=== PATIENT | female | born 2000 ===

== ENCOUNTER 2021-06-28 11:07 | Inpatient (IN) | payer BC ==
[~2021-06-28] VITALS: Ht 170.2 cm; Wt 78.2 kg
[2021-06-28] VITALS (9 sets, daily range): BP systolic 117–156; BP diastolic 64–103; PULSE 77–85; TEMP 98.2
[2021-06-28] MEDS ORDERED: TRANDATE 100MG100 MG PO (19:24)
[2021-06-28] MEDS ORDERED: PRENATAL TABLET PO (19:25)
[2021-06-28] MEDS ORDERED: ASPIRIN 81M81 MG/TA2 PO (19:25)
--- NOTE | 2021-06-28 20:00 | NUR ---
1920 G1 at 38.5 weeks gestation to LDR3 with and mother for cytotec induction. Patient changed into gown and wedged to left side in bed. EFMs explained and applied. FHR category 1. Patient reports good movement and irregular contractions, denies LOF or vaginal bleeding. Plan of care reviewed, assessment completed and consents signed. Initial BP at 1920 156/103, repeat at 1935 159/104. Patient high on left side, lights turned down. BP at 1952 138/88. Dr. Webster called and updated at 1955. IV started at 1949 with labs drawn from site. FHR decelerations noted from 1949 - 1999, with FHR down to 130-140 bpm with a spontaneous return to baseline of 145 bpm. IVF bolus started.
[2021-06-28 20:18] LABS: BASO % 0.3 % (0.0-2.0); EOS # 0.1 K/mm3 (0.0-0.7); EOS % 0.6 % (0.0-4.0); GRAN # 8.5 K/mm3 (1.4-6.5); GRAN % 69.4 % (42.2-75.2); HEMATOCRIT 39.2 % (35.0-45.0); HEMOGLOBIN 13.8 g/dl (12.0-15.0); LYMPH # 2.8 K/mm3 (1.2-3.4); LYMPH % 22.5 % (20.0-51.0); MEAN CELL VOLUME 88 fl (80.0-95.0); MEAN CORPUSCULAR HEMOGLOBIN 31 pg (26-32); MEAN CORPUSCULAR HGB CONC 35 g/dl (33.0-37.0); MEAN PLATELET VOLUME 11.7 fl (7.4-10.4); MONO # 0.8 K/mm3 (0.1-0.6); MONO % 6.3 % (1.7-9.3); PLATELET COUNT 221 K/mm3 (130-400); RED BLOOD COUNT 4.48 M/mm3 (4.10-5.30); REDCELL DISTRIBUTION WIDTH-CV 12.2 % (11.5-14.5)
--- NOTE | 2021-06-28 20:30 | NUR ---
2018 FHR deceleration down to 130 bpm over 50 seconds with a spontaneous return to baseline of 140 bpm.
--- NOTE | 2021-06-28 20:33 | NUR ---
2032 E with cytotec placement by VENICE Lincoln.
[2021-06-28 20:35] LABS: ALBUMIN 2.8 gm/dL (3.5-5.0); BILIRUBIN,TOTAL 0.3 mg/dL (0.2-1.2); CALCIUM 9.4 mg/dL (8.4-10.2); CREATININE, serum 0.66 mg/dL (0.57-1.11); POTASSIUM 3.8 mmol/L (3.5-4.5); TOTAL PROTEIN 6.9 gm/dL (6.2-8.1)
--- NOTE | 2021-06-28 22:00 | NUR ---
2148- PT UP TO BR 215- PT AMBULATES BACK TO BED 2154- RT SIDE AND TOCO ADJUSTED
--- NOTE | 2021-06-28 22:30 | NUR ---
2216- DECELERATION NOTED AT THIS TIME BUT NOT ASSOCIATED WITH A CTX AT THIS TIME. FUNDUS PALPATED AND TOCO ADJUSTED
[2021-06-29] VITALS (31 sets, daily range): BP systolic 113–162; BP diastolic 55–104; PULSE 68–113; TEMP 97.2–98.7
--- NOTE | 2021-06-29 | NUR ---
2340- PT MOVED TO RT SIDE, TOCO ADJUSTED
--- NOTE | 2021-06-29 01:00 | NUR ---
POC D/W PT AFTER SPEAKING WITH PROVIDER. PT IN AGREEMENT WITH POC AND VERBALIZES UNDERSTANDING. WHILE PT UP TO THE BR, BLOODY SHOW NOTED. LET THE PT KNOW THAT WAS A NORMAL FINDING AND TO NOT BE ALARMED. UP TO BR AND AFTER VOIDING PT UP TO SIDE OF BED STANDING AND SWAYING HIPS. PT BREATHING THROUGH CTX, COPING AND MORE COMFORTABLE STANDING UP. SPOUSE REMAINS AT BS AND ACTIVE IN PT'S CARE.
--- NOTE | 2021-06-29 02:00 | NUR ---
0155- PT VOMITING AND EXPERIENCING HORMONE SHAKES.
--- NOTE | 2021-06-29 02:30 | NUR ---
PT SITTING UP ON THE SIDE OF BED AND BREATHING THROUGH CTXS. PT REQUESTING SOMETHING FOR THE PAIN. D/W PT AND SPOUSE PAIN MANAGEMENT OPTIONS IV MEDICATION VS. EPIDURAL. EDUCATION PROVIDED AND ALL QUESTIONS ANSWERED. PT WOULD LIKE TO TRY IV PAIN MEDICATION.
--- NOTE | 2021-06-29 02:35 | NUR ---
STADOL 1 MG IV GIVEN FOR PAIN. PT LAYING ON LEFT SIDE. SO AT BS. CALL LIGHT WITHIN REACH.
--- NOTE | 2021-06-29 03:30 | NUR ---
PT RESTING IN BED AND REPORTS PAIN MEDICINE EFFECTIVE. STATES THAT SHE CAN STILL FEEL CTX BUT NOT STRONG. PT DENIES ANY ADDITIONAL NEEDS AT THIS TIME.
--- NOTE | 2021-06-29 05:00 | NUR ---
PT REPORTS SHE IS STARTING TO FEEL CTX MORE INTENSLY AGAIN.
--- NOTE | 2021-06-29 05:30 | NUR ---
PT BECOMING INCREASINGLY MORE UNCOMFORTABLE AND STANDING UP AT SIDE OF BED.
--- NOTE | 2021-06-29 06:00 | NUR ---
0553- IV BOLUS GOING FOR EPIDURAL PLACEMENT. PT STANDING UP ON SIDE OF BED SWAYING AND MOANINNG. FAMILY AT BS AND SUPPORTIVE IN PT'S CARE.
--- NOTE | 2021-06-29 06:22 | NUR ---
Sits up for epidural. 0626 Local given by anesthesia Malcolm. 0627 Space obtained and straight shot given by Malcolm moran. Lies down after.
--- NOTE | 2021-06-29 06:30 | NUR ---
Repositioned because of decel down in the nintys for seventy seconds.
--- NOTE | 2021-06-29 07:00 | NUR ---
Having variables down in the nintys for 50 seconds, repositioned to left side.
--- NOTE | 2021-06-29 07:15 | NUR ---
heart tones down to the 95 for 110 seconds. Placed knee chest position 0723 Dr. Villaseñor here, arom done, moderate amount of clear fluid.
--- NOTE | 2021-06-29 07:45 | NUR ---
heart tones down in the 100s for three minutes, repositioned from left-right. Dr. Villaseñor at bedside.
--- NOTE | 2021-06-29 08:43 | NUR ---
Patient complete, prepped for delivery. 0845 Pushes with contractions. 0853 Vacuum on, pushes with contractions. [address] Villaseñor. 0902 Spontaneous delivery of placenta by Dr. Villaseñor. Pitocin infusing at 333ccs an hour as ordered and per policy.
--- NOTE | 2021-06-29 09:15 | NUR ---
Rests in bed, alert. Holds baby lovingly. Denies any needs at this time.
--- NOTE | 2021-06-29 09:45 | NUR ---
Rests in bed, alert. Apple juice given, denies any other need at this time.
--- NOTE | 2021-06-29 11:00 | NUR ---
Rests in bed, alert. baby. Denies any discomfort or needs at this time.
--- NOTE | 2021-06-29 13:20 | NUR ---
Ambulates to the bathroom, tolerates well. States unable to pee at this time. Mónica-care shown and done by patient. Encouraged to drink more, and that we would try in an hour. 1330 To room 216 via wheel chair. Oriented to room, family at bedside.
--- NOTE | 2021-06-29 16:15 | NUR ---
Ambulates to the bathroom, voids moderate amount of urine. Tylenol 1000 mg given as ordered.
[2021-06-29] MEDS ORDERED: MOTRIN 800800 MG/TAB PO (20:47)
[2021-06-30 04:10] VITALS: BP 124/77; PULSE 78; TEMP 97.9
[2021-06-30 08:15] VITALS: BP 128/75; PULSE 83; TEMP 97.6
--- NOTE | 2021-06-30 09:21 | NUR ---
Initial visit attempt; Nurse with family, [facility] Work[facility] left card of congratulations for the of their son and God's blessings along with information regarding the availability of spiritual care at [facility].
[2021-06-30 14:30] VITALS: BP 137/79; PULSE 94
--- NOTE | 2021-06-30 15:04 | NUR ---
DISCHARGE TEACHING COMPLETED. PATIENT EDUCATED ON FOLLOW UP APPOITNMENT AND PRESCRIPTIONS. QUESTIONS INVITED AND ANSWERED.
== END 2021-06-30 15:25 | disposition home or self-care (01) | DRG 807 ==
LOC: LDR 11:07 → OB 19:01
PROVIDERS: ADMIT Obstetrics & Gynecology
PROC: 3E0P7VZ Introduction of Hormone into Female Reproductive, Via Natural or Artificial Opening (ICD-10-PCS; 2021-06-28)
PROC: 10D07Z6 Extraction of Products of Conception, Vacuum, Via Natural or Artificial Opening (ICD-10-PCS; principal; 2021-06-29)
PROC: 0HQ9XZZ Repair Perineum Skin, External Approach (ICD-10-PCS; 2021-06-29)
PROC: 10907ZC Drainage of Amniotic Fluid, Therapeutic from Products of Conception, Via Natural or Artificial Opening (ICD-10-PCS; 2021-06-29)
DX: O13.4 Gestational [pregnancy-induced] hypertension without significant proteinuria, complicating childbirth (principal); Z37.0 Single live birth; O76 Abnormality in fetal heart rate and rhythm complicating labor and delivery; O70.0 First degree perineal laceration during delivery; O69.81X0 Labor and delivery complicated by cord around neck, without compression, not applicable or unspecified; O99.344 Other mental disorders complicating childbirth; F41.9 Anxiety disorder, unspecified; Z3A.38 38 weeks gestation of pregnancy; Z86.16 Personal history of COVID-19
CPT/HCPCS: J0595; J2590; J2795; J7120

== ENCOUNTER 2021-07-05 18:28 | Emergency (ER) | payer BC ==
[~2021-07-05] VITALS: Ht 170.2 cm; Wt 69.1 kg
[~2021-07-05 18:28] MED LIST: ASPIRIN 81M81 MG/TA2 PO; MOTRIN 800800 MG/TAB PO; PRENATAL TABLET PO; TRANDATE 100MG100 MG PO
[2021-07-05 18:55] LABS: BASO # 0.1 K/mm3 (0.0-0.2); BASO % 0.7 % (0.0-2.0); EOS # 0.3 K/mm3 (0.0-0.7); EOS % 2.5 % (0.0-4.0); GRAN # 8.6 K/mm3 (1.4-6.5); GRAN % 62.8 % (42.2-75.2); HEMATOCRIT 40.8 % (35.0-45.0); HEMOGLOBIN 13.9 g/dl (12.0-15.0); LYMPH # 3.9 K/mm3 (1.2-3.4); LYMPH % 28.6 % (20.0-51.0); MEAN CELL VOLUME 90 fl (80.0-95.0); MEAN CORPUSCULAR HEMOGLOBIN 31 pg (26-32); MEAN CORPUSCULAR HGB CONC 34 g/dl (33.0-37.0); MEAN PLATELET VOLUME 10.5 fl (7.4-10.4); MONO # 0.7 K/mm3 (0.1-0.6); MONO % 4.7 % (1.7-9.3); PLATELET COUNT 372 K/mm3 (130-400); RED BLOOD COUNT 4.55 M/mm3 (4.10-5.30); REDCELL DISTRIBUTION WIDTH-CV 11.9 % (11.5-14.5)
[2021-07-05 19:04] LABS: COLLECTION METHOD CLEAN CATCH
[2021-07-05 19:09] LABS: ALBUMIN 3.3 gm/dL (3.5-5.0); BILIRUBIN,TOTAL 0.2 mg/dL (0.2-1.2); CREATININE, serum 0.76 mg/dL (0.57-1.11); POTASSIUM 3.8 mmol/L (3.5-4.5); TOTAL PROTEIN 7.6 gm/dL (6.2-8.1)
[2021-07-05 19:16] LABS: PH 6 (5-8); SQUAMOUS EPITHELIAL 0-2 /hpf (0-10); URINE APPEARANCE Hazy (CLEAR/HAZY); URINE BACTERIA None Seen /hpf (NONE SEEN); URINE BILIRUBIN Negative (NEGATIVE); URINE BLOOD 3+ (NEGATIVE); URINE COLOR Yellow (YELLOW); URINE GLUCOSE Negative (NEGATIVE); URINE KETONE Negative (NEGATIVE); URINE LEUKOCYTE ESTERASE 3+ (NEGATIVE); URINE NITRATE Negative (NEGATIVE); URINE PROTEIN(semi-quant) Negative (NEGATIVE); URINE UROBILINOGEN Negative (NEGATIVE)
[2021-07-05 20:12] VITALS: BP 136/97; PULSE 82; TEMP 97.9
== END 2021-07-05 20:12 | disposition home or self-care (01) ==
LOC: COL.ER 18:28
PROVIDERS: Nurse Practitioner Primary Care
DX: O16.5 Unspecified maternal hypertension, complicating the puerperium (principal)

== ENCOUNTER → 2021-07-29 | Outpatient (CLI) | payer BC, MEDICAID ==
--- NOTE | 2021-07-29 15:37 | NUR ---
Pt, Carmen Colindres, presents for outpatient consult with 1 month old baby boy, Gurpreet Colindres. Gurpreet is 3 days S/P oral tether release at the lip and tongue. Gurpreet was born on [birth year] by and weighed 7# 13oz (3543 oz). Pt contacted this LC by telephone on 07/22/21 with concerns about suck blisters the full length of Gurpreet's upper lip and sore nipples. After discussion it was suggested by this LC to have him evaluated for lip and tongue tie. Gurpreet has release of upper lip and tongue tethers on 07/26/21. Pt states the nursing seems more comfortable and the lip blisters are subsiding, but she desired a consultation to evaluate latch. Today Gurpreet weighs 10# 8.3oz (4772 gms). He nurses ~8 feedings daily, qs voids and stools. Pt has perfect latch and technique. After nursing nipple is appropriatly shaped. Gurpreet has a weight gain of 4.1oz (114 gms). General questions answered, pt reassured about success. POC: Continue to breastfeed ad keenan. F/U: as scheduled for next appt with [facility].
== END ==
LOC: LAC 14:49
DX: Z39.1 Encounter for care and examination of lactating mother (principal)

== ENCOUNTER 2021-10-13 09:20 | Day surgery (SDC) | payer BC, MEDICAID ==
[~2021-10-13] VITALS: Ht 170.2 cm; Wt 61.2 kg
[2021-10-13] MEDS ORDERED: NORMODYNE100 MG PO (09:55)
[2021-10-13 09:59] VITALS: BP 129/80; PULSE 98; TEMP 97.7
[2021-10-13 11:55] VITALS: BP 108/68; PULSE 96; TEMP 97.6
[2021-10-13 12:10] VITALS: BP 114/69; PULSE 96
[2021-10-13 12:25] VITALS: BP 110/76; PULSE 97
== END 2021-10-13 13:00 | disposition home or self-care (01) ==
LOC: SDCO 09:20
DX: K29.50 Unspecified chronic gastritis without bleeding (principal); K63.89 Other specified diseases of intestine; K63.3 Ulcer of intestine; K59.00 Constipation, unspecified; K52.9 Noninfective gastroenteritis and colitis, unspecified; K21.9 Gastro-esophageal reflux disease without esophagitis; F41.9 Anxiety disorder, unspecified; Z86.16 Personal history of COVID-19; Z79.899 Other long term (current) drug therapy; Z90.49 Acquired absence of other specified parts of digestive tract
CPT/HCPCS: J2704; J3010; J7030